=== PATIENT | male | born 1970 | race Caucasian/White ===

== ENCOUNTER 2023-02-15 08:09 | Day surgery (SDC) | payer MEDICAID ==
[2023-02-11 08:55] VITALS: BMI 52.2
[2023-02-15 08:31] VITALS: TEMP 97.1
[2023-02-15] MEDS ORDERED: LACTATED RINGERS 1,000 ML IV ONE (08:37)
[2023-02-15] MEDS ORDERED: LACTATED RINGERS 1,000 ML IV SCH (08:40)
[2023-02-15] MEDS ORDERED: PROPOFOL 10 MG/ML 20 ML VIAL IV ONE (09:00)
[2023-02-15] MEDS ORDERED: LIDOCAINE 2% INJ 20 MG/ML (2 ML VIAL) ONE (09:00)
--- NOTE | 2023-02-15 09:40 | P.OP ---
Date of Procedure: 02/15/23 Preoperative Diagnosis: screening colonoscopy Postoperative Diagnosis: distal descending colon polyp Procedure(s) Performed: colonoscopy with cold forceps biopsy Anesthesia: MAC Surgeon: Key Parrish Estimated Blood Loss (ml): 5 Pathology: other (distal descending colon polyp) Condition: stable Disposition: PACU Indications for Procedure: screening colonoscopy, no prior colonoscopy, no family history Operative Findings: Small hyperplastic appearing distal descending colon polyp, which was biopsied with cold forceps biopsy. Description of Procedure: Tyrone was brought to the endoscopy suite & placed in left lateral decubitus position. Standard timeout was taken. Anesthesia was performed by the anesthesia service; heart rate, pulse oximetry & blood pressure were monitored throughout the entire case. Digital rectal examination was performed; no hemorrhoids noted. The colonscope was then inserted into the rectum & advanced throughout the sigmoid & transverse colon, into the cecum. Ileocecal valve & appendiceal orifice was identified. The scope was then slowly withdrawn visualizing all sides of the colonic wall. A small hyperplastic appearing polyp was noted in distal descending colon, just proximal to the start of the sigmoid colon. It was biopsied with cold forceps. Colonoscope was further withdrawn & retroflexed in J maneuver and no internal hemorrhoids were appreciated. No diverticulitis was noted. Scope was straightened out & removed completely. Franklin prep score was a 7 (2 ascending, 2 transverse, 3 descending). Tyrone tolerated the procedure well. He was awoken without incident; transferred from endoscopy suite to the PACU in stable condition. Upon stable recovery, he will be discharged home in the care of family. Next colonoscopy will be dependent upon pathology. Plan - Discharge Summary Discharge Rx Participant: No New Discharge Prescriptions: No Action Losartan Potassium 1 tab PO DAILY Discharge Medication List Losartan Potassium 1 tab PO DAILY 02/11/23 [History]
[2023-02-15 09:52] VITALS: BP 130/76; PULSE 80; RESP 20
== END 2023-02-15 10:04 | disposition home or self-care (01) ==
LOC: ORWHC2ENDO 08:09
PROVIDERS: ATTEND Surgery
DX: Z12.11 Encounter for screening for malignant neoplasm of colon (principal); K63.5 Polyp of colon; I10 Essential (primary) hypertension; Z79.899 Other long term (current) drug therapy
CPT/HCPCS: 45380; J2704; J2001; 88305